=== PATIENT | female | born 1970 | race Caucasian/White ===

== ENCOUNTER 2018-09-15 10:18 | Emergency (ER) | payer SELFPAY ==
[~2018-09-15] VITALS: Ht 175.3 cm; Wt 88.0 kg
[2018-09-15] MEDS ORDERED: CYCLOBENZAPRINE5 MG PO (10:44)
[2018-09-15 11:07] VITALS: BP 114/80
[2018-09-15] MEDS ORDERED: NITROGLYCERIN 2% OINT 1 GM PKT ONE (12:52)
[2018-09-15] MEDS ORDERED: LABETALOL HCL 20 ML ONE (12:52)
== END 2018-09-15 11:09 | disposition home or self-care (01) ==
LOC: ER 10:18
DX: M54.2 Cervicalgia (principal); S29.012A Strain of muscle and tendon of back wall of thorax, initial encounter; S46.812A Strain of other muscles, fascia and tendons at shoulder and upper arm level, left arm, initial encounter; W20.8XXA Other cause of strike by thrown, projected or falling object, initial encounter; F17.210 Nicotine dependence, cigarettes, uncomplicated
CPT/HCPCS: 99282; J3490